=== PATIENT | female | born 1995 | race Hispanic/Latino ===

== ENCOUNTER 2017-08-09 12:24 | Emergency (ER) | payer SELFPAY | END 2017-08-09 14:02 | disposition home or self-care (01) | LOC: ERS 12:24 | DX: H00.015 Hordeolum externum left lower eyelid (principal); R51 Headache | CPT/HCPCS: 99283 ==

== ENCOUNTER 2017-09-16 10:25 | Emergency (ER) | payer SELFPAY ==
[2017-09-16 11:04] LABS: Bilirubin Negative (Negative); Blood, Urine Negative (Negative); Glucose, Urine (Dipstick) Negative (Negative); Ketone, Urine 15 mg/dL (Negative); Nitrite Negative (Negative); Protein, Urine (Dipstick) Trace mg/dL (Neg-Trace); Urobilinogen 0.2 mg/dL (0.2-1.0)
[2017-09-16 11:05] LABS: Bacteria/HPF Rare-Few HPF (None Seen); Hyaline Casts/LPF 0-3 HYALINE CAST LPF (0-3 Hyaline)
--- NOTE | 2017-09-16 12:18 | ULT ---
ULTRASOUND PELVIC ULTRASOUND TRANSVAGINAL DOPPLER DUPLEX: Date: 09/16/17 HISTORY: 22-year-old female with pelvic pain. TECHNIQUE: Transabdominal transducer used to evaluate intrapelvic contents using the urinary bladder as an acous tic window. Endovaginal transducer used to visualize intrapelvic contents in greater detail. Color fl ow Doppler and Pulsed Doppler spectral waveform analysis of ovaries. FINDINGS: Uterus: 9 x 5 x 5.5 cm. There is an intrauterine gestational sac with dimensions of 0.8 x 0.6 x 1.2 cm, estimated to 5 weeks/ 4 days gestational age. It contains a yolk sac, but no embryonic pole. No heart activity. There are two small, moderately hypoechoic, irregularly shaped areas adjacent to the gestational sac which questionably represent subchorionic hemorrhages with thrombosis. No free fluid in the cul-de-sac. Right Ovary: 1.5 x 3 x 1.5 cm. Left Ovary: 2 x 3 x 2.5 cm. No corpus luteal cyst visualized. Blood flow demonstrated in both ovaries by Doppler. IMPRESSION: 1. Evidence for blighted ovum: gestational sac with yolk sac, but no embryo. 2. Two areas of questionable subchorionic hemorrhage. NATALIA Reveles POS: [facility]
== END 2017-09-16 13:26 | disposition home or self-care (01) ==
LOC: ERS 10:25
DX: O20.0 Threatened abortion (principal); O11.3 Pre-existing hypertension with pre-eclampsia, third trimester; Z3A.01 Less than 8 weeks gestation of pregnancy
CPT/HCPCS: 36415; 76856; 81003; 81015; 81025; 84702; 86900; 86901; 87086; 87480; 87491; 87510; 87591; 87660

== ENCOUNTER 2017-09-18 14:34 | Emergency (ER) | payer SELFPAY ==
[2017-09-18 14:57] LABS: #Eosinphils 0.1 thou/uL (0.0-0.7); #Lymphocytes 2.3 thou/uL (1.20-3.40); #Monocytes 0.7 thou/uL (0.11-0.59); #Neutrophils 6.7 thou/uL (1.40-6.50); %Basophils 0.3 % (0.0-1.0); %Eosinophils 1.4 % (0.0-10.0); %Lymphocytes 23.9 % (21.0-51.0); %Monocytes 6.6 % (0.0-10.0); Hematocrit 38.2 % (36.0-47.0); Mean Platelet Volume 7.7 fL (7.4-10.4); White Blood Cell (WBC) Count 9.8 thou/uL (4.8-10.8)
--- NOTE | 2017-09-18 16:58 | ULT ---
PELVIC ULTRASOUND INCLUDING TRANSABDOMINAL AND TRANSVAGINAL AND VASCULAR DUPLEX WITH COLOR AND SPECTR AL DOPPLER IMAGIN09/18/17 HISTORY: Pelvic pain. COMPARISON: 09/16/17. There is again noted to be an intrauterine gestational sac with evidence for a yolk sac but no eviden ce for a pole. There is evidence for retrochorionic hemorrhage again noted. Small left ovarian possibly corpus luteum cyst. The gestational sac actually appears to be somewhat larger than on the p rior study which by measurements would indicate approximately 6 weeks, 0 days gestation. Findings cer tainly favor that of possible blighted ovum. Given the gestational sac size and the fact that there i s no pole or cardiac activity. IMPRESSION: Somewhat enlarging gestational sac with a yolk sac but no evidence for a pole or cardiac activity. Small left ovarian corpus luteum cyst. Findings favor that of blighted ovum. Correlation wi th serum HCGs is suggested. There is evidence for subchorionic hemorrhage. POS: [facility]
== END 2017-09-18 17:30 | disposition home or self-care (01) ==
LOC: ERS 14:34
DX: O20.0 Threatened abortion (principal); O16.1 Unspecified maternal hypertension, first trimester; Z3A.01 Less than 8 weeks gestation of pregnancy
CPT/HCPCS: 36415; 76856; 84702; 85025

== ENCOUNTER 2017-10-06 20:06 | Emergency (ER) | payer SELFPAY ==
[2017-10-06 21:11] LABS: BHCG - Serum POSITIVE (NEGATIVE); Pregs Control Background? CLEAR/WHITE (CLR/WHITE); Pregs Control Bar Appear? YES (CONTROL BAR)
== END 2017-10-06 21:30 | disposition home or self-care (01) ==
LOC: ERS 20:06
DX: O02.0 Blighted ovum and nonhydatidiform mole (principal); I10 Essential (primary) hypertension
CPT/HCPCS: 36415; 84702; 84703; 99284

== ENCOUNTER 2018-02-24 17:07 | Day surgery (SDC) | payer SELFPAY ==
[2018-02-24 18:25] VITALS: BMI 24.7
--- NOTE | 2018-02-24 19:04 | PDOC.LDHP ---
Labor and Delivery H&P Chief complaint: other (fever, nausea/vomiting) HPI: Serene Bauer is a 22 year old F at 28.3 wks who presents to the L&D with complains of fever and nausea and vomiting. States that these symptoms started yesterday and have worsened today. She is unable to keep PO down. She states that he fever is as high as 101.3. She denies any contractions, LOF, vaginal bleeding, discharge. +FM. Her has been otherwise uneventful. Current gestational age (weeks): 28 (28.3) Due date: 05/16/18 Grav: 4 Para: 3 (3003) OB History Details: hx of pre-eclampsia in first , no issues with next 2 pregnancies Current complications: none Abnormal US findings: No Current medications: pre-geremias vitamins Social history: none - Physical Exam Vital signs reviewed and normal: yes General: NAD, resting Heart: RRR Lungs: CTAB Abdomen: gravid Extremeties: no edema FHT: category 1 (140 baseline, mod addis, accels present, no decels) [place] contractions every: none - OB Labs Blood type: unknown RH: unknown Antibody Screen: unknown HIV: unknown RPR: unknown HEPSAg: unknown 1 hour GCT: unknown GBS: unknown Additional Labs: unable to obtain labs due to after hours - Assessment (1) sIUP (2) Fever (3) N/v (4) Hx of pre-eclampsia - Plan Plan: observation in L&D -: Serene Bauer is a 22 year old F at 28.3 weeks with fever, n/v. (1) sIUP: - no contractions, LOF, vaginal bleeding. +FM - checking BPP and OB limited US - FHTs cat I (2) Fever: unknown etiology at this time - checking CBC, CMP, UA, lactic acid - denies pain, no CVAT, normal abd exam (3) N/V: - prn nausea meds - tylenol for headache <Raghu Rollins - Last Filed: 02/24/18 20:23> <Pam Regalado - Last Filed: 02/24/18 21:19> Allergies/Adverse Reactions: Allergies Allergy/AdvReac Type Severity Reaction Status Date / Time No Known Allergies Allergy Verified 11/27/16 11:54 Attending Addendum - Attending Addendum Date/Time: 02/24/182113 I personally evaluated the patient and discussed the management with Dr. Rollins I agree with the History, Examination, Assessment and Plan documented above with any addition or exceptions noted below. 22 yo female at 28.3 wks present for evaluation of persistent N/V and fever at home today. Unable to review records, but has consistent care with [facility]. Over the past few days patient complains of N/V with fever of 101 at home x1. No significant sick contacts. Denies colds, chills, body aches, rashes , diarrhea, discharge, dysuria, etc. Exam benign for significant findings as well. Uterus nontender to palpation. No CVA tenderness bilaterally. NST reactive. Will monitor in triage for present. Based on workup, symptoms, fetus, and patient will determine if need for obs or ok to d/c to home. Will rule out sources of infection. BPP and biometry ordered. Trend exam. Continue to monitor fetus throughout. No contractions noted on toco or per patient. Treat symptoms. Start IVFs. Ileana <Pam Regalado - Last Filed: 02/24/18 21:19>
[2018-02-24 19:08] VITALS: BP 111/55; TEMP 100
[2018-02-24 19:09] LABS: #Eosinphils 0.2 thou/uL (0.0-0.7); #Lymphocytes 1.2 thou/uL (1.20-3.40); #Monocytes 0.8 thou/uL (0.11-0.59); #Neutrophils 9.9 thou/uL (1.40-6.50); %Basophils 0.1 % (0.0-1.0); %Eosinophils 1.9 % (0.0-10.0); %Lymphocytes 10.1 % (21.0-51.0); %Monocytes 6.4 % (0.0-10.0); %Neutrophils 81.5 % (42.0-75.0); Hemoglobin 9.3 g/dL (12.0-16.0); Mean Corpuscular HGB CONC 33.3 g/dL (32.0-36.0); Mean Corpuscular Hemoglobin 25.4 pg (27.0-31.0); Mean Corpuscular Volume 76.2 fl (81.0-99.0); Mean Platelet Volume 8.3 fL (7.4-10.4); Platelet Count 219 thou/uL (130-400); RBC Distribution Width 12.9 % (11.5-14.5); Red Blood Cell (RBC) Count 3.64 mill/uL (4.20-5.40); White Blood Cell (WBC) Count 12.1 thou/uL (4.8-10.8)
[2018-02-24 19:47] LABS: ALT (SGPT) 8 U/L (8-55); AST (SGOT) 16 U/L (5-34); Albumin 3.7 g/dL (3.5-5.0); Alkaline Phosphatase 118 U/L (40-150); Anion Gap 11 mmol/L (10-20); BUN (Urea Nitrogen) 5 mg/dL (7.0-18.7); Bilirubin, Total 0.3 mg/dL (0.2-1.2); Calc. Creatinine Clearance 156 mL/min (70-130); Calcium 8.7 mg/dL (7.8-10.44); Carbon Dioxide 22 mmol/L (22-29); Chloride 109 mmol/L (98-107); Estimated GFR-MDRD Greater than 90; Glucose 103 mg/dL (70-105); Potassium 3.6 mmol/L (3.5-5.1); Protein, Total 6.7 g/dL (6.0-8.3); Sodium 138 mmol/L (136-145)
[2018-02-24 19:54] LABS: Lactic Acid 1.3 mmol/L (0.5-2.2)
[2018-02-24] MEDS ORDERED: Acetaminophen 325 MG TAB PO PRN (20:00)
[2018-02-24] MEDS ORDERED: Ondansetron ODT 4 MG TAB PO PRN (20:01)
[2018-02-24 21:09] LABS: Bilirubin Negative (Negative); Blood, Urine Negative (Negative); Clarity CLEAR (Clear); Glucose, Urine (Dipstick) Negative (Negative); Leukocyte Trace (Negative); Nitrite Negative (Negative); Protein, Urine (Dipstick) Negative (Neg-Trace); Specific Gravity, Urine 1.003 (1.002-1.036); Urobilinogen 0.2 mg/dL (0.2-1.0)
[2018-02-24 21:11] LABS: Bacteria/HPF 1+ HPF (None Seen); Hyaline Casts/LPF 0-3 HYALINE CAST LPF (0-3 Hyaline); RBC/HPF 0-3 HPF (0-3); Squamous Epithelial 0-3 HPF (0-3); WBC/HPF 0-3 HPF (0-3)
--- NOTE | 2018-02-24 21:46 | ULT ---
BIOPHYSICAL PROFILE 02/24/18 COMPARISON: None. HISTORY: female with fever, nausea, and vomiting. TECHNIQUE: Multiplanar alford scale and color doppler images were obtained in a transabdominal ultrasound fo r a biophysical profile. FINDINGS: There is a single live intrauterine with heart rate of 160 beats per minute. CARMEN is 15.9 cm , which is normal. The fetus scored 8 of 8 on the biophysical profile which is normal. IMPRESSION: Normal biophysical profile. POS: [facility]
--- NOTE | 2018-02-24 22:01 | ULT ---
OB ULTRASOUND: 02/24/18 COMPARISON: None. HISTORY: female with fever, nausea, and vomiting. TECHNIQUE: Multiplanar alford scale and color doppler images were obtained in a transabdominal ultrasound. FINDINGS: There is a single live intrauterine with heart rate of 160 beats per minute. Estimated feta l weight is 1267 grams. Average age of the fetus based off today's examination is 28 weeks, 3 days. T he following measurements were taken and dates based off these measurements are as follows: BPD 6.95 cm 28 weeks, 0 days HC 26.39 cm 28 weeks, 5 days AC 24.69 cm 28 weeks, 6 days FL 5.37 cm 28 weeks, 3 days The placenta is anterior in location without focal abnormality. CARMEN is 15.9 cm, which is normal. Ther e is no evidence of placenta previa. IMPRESSION: Single live intrauterine with estimated age of 28 weeks, 3 days. POS: [facility]
== END 2018-02-24 23:05 | disposition home or self-care (01) ==
LOC: L&D/OP 17:07
PROVIDERS: ATTEND Student in an Organized Health Care Education/Training Program
DX: O99.89 Other specified diseases and conditions complicating pregnancy, childbirth and the puerperium (principal); R50.9 Fever, unspecified; R11.2 Nausea with vomiting, unspecified; Z3A.28 28 weeks gestation of pregnancy
CPT/HCPCS: 36415; 76816; 76819; 80053; 81001; 83605; 85025; 96360; 96361; 99283

== ENCOUNTER 2018-03-15 09:37 | Day surgery (SDC) | payer OTHER ==
[2018-03-15 10:02] VITALS: TEMP 98.4; BMI 24.5
[2018-03-15] MEDS ORDERED: Iron Sucrose Complex 500 MG in Sodium Chloride 0.9% 250 ML 250 ML IVPB SCH (10:30)
[2018-03-15] MEDS ORDERED: Acetaminophen 500 MG TAB PO SCH (10:30)
[2018-03-15] MEDS ORDERED: diphenhydrAMINE 50 MG/ML VIAL IVP PRN (11:12)
--- NOTE | 2018-03-15 11:15 | PDOC.EVN ---
Event Note - Event Note Event Note: Pt is a 22yo at 31.3wk with EDC 05/16/18 here for iron infusion due to persistent anemia despite po iron intake. She is feeling well today and has no concerns. Denies ctx, dec FM, VB, LOF. PE- wnl, gravid abd. no distress. VSS FHT- 140, mod addis, + acel, - decel -- Cat I strip Continue IV iron sucrose per protocol and monitor. If feeling well after infusion, d/c home with outpt OB follow up at [facility].
[2018-03-15] MEDS ORDERED: Sodium Chloride 0.9% 1,000 ML IV SCH (16:30)
--- NOTE | 2018-03-15 16:37 | PDOC.EVN ---
Event Note - Event Note Event Note: called to bedside after infusion complete and pt c/o feeling "weird." She endorses swelling and a rash as well as feeling numbness in her legs and overall dizziness. VSS- BP 110s/60-70s, pulse wnl FHT- cat I PE- Gen- well appearing, NAD HEENT- wnl, no oropharyngeal skin- no visible or palpable rash Lungs- CTAB, no resp distress CV- RRR LE- trace LE edema, nonpitting pt is s/p 25mg IV benadryl A&P- Likely drug reaction from iron sucrose vs. anxiety vs. combination- no signs of anaphylaxis, allergic rxn. will give IVF bolus, monitor and likely d/c home after feeling better. <Rolanda Figueroa - Last Filed: 03/15/18 16:29> Attending Addendum - Attending Addendum Date/Time: 03/16/18 6655 I personally evaluated the patient and discussed the management with Dr. Figueora I agree with the History, Examination, Assessment and Plan documented above with any addition or exceptions noted below. Agree with plan. Patient actual with improvement in H&H from last weeks clinic labs. Will monitor. ABrayMD <Pma Regalado - Last Filed: 03/16/18 11:50>
[2018-03-15 16:38] LABS: #Eosinphils 0.2 thou/uL (0.0-0.7); #Lymphocytes 1.7 thou/uL (1.20-3.40); #Monocytes 0.5 thou/uL (0.11-0.59); #Neutrophils 6.5 thou/uL (1.40-6.50); %Basophils 0.1 % (0.0-1.0); %Eosinophils 2.7 % (0.0-10.0); %Lymphocytes 19.4 % (21.0-51.0); %Monocytes 5.4 % (0.0-10.0); %Neutrophils 72.3 % (42.0-75.0); Hemoglobin 9.1 g/dL (12.0-16.0); Mean Corpuscular HGB CONC 32.3 g/dL (32.0-36.0); Mean Corpuscular Hemoglobin 23.8 pg (27.0-31.0); Mean Corpuscular Volume 73.9 fl (81.0-99.0); Mean Platelet Volume 8.5 fL (7.4-10.4); Platelet Count 238 thou/uL (130-400); RBC Distribution Width 14.2 % (11.5-14.5); Red Blood Cell (RBC) Count 3.83 mill/uL (4.20-5.40)
[2018-03-15 17:10] LABS: Hypochromia SLIGHT = 6-15 cells (100X) (0-5/hpf); MDiff Complete? YES; Microcytosis SLIGHT = 6-15 cells (100X) (0-5/hpf); Ovalocytes SLIGHT = 2-5 cells (100X) (0-1/hpf); PLT Morphology Comment Appears Adequate; Polychromasia SLIGHT = 2-3 cells (100X) (0-2/hpf)
--- NOTE | 2018-03-15 18:20 | PDOC.EVN ---
Event Note - Event Note Event Note: Patient feeling much better. No longer having any rash or allergy symptoms. She feels well and is ready to go home. Will d/c home with f/u in [facility] at next scheduled visit.
== END 2018-03-15 18:35 | disposition home or self-care (01) ==
LOC: L&D/OP 09:37
PROVIDERS: ATTEND Student in an Organized Health Care Education/Training Program
DX: O99.013 Anemia complicating pregnancy, third trimester (principal); Z3A.31 31 weeks gestation of pregnancy
CPT/HCPCS: 85025; 96361; 96365; 96366; 96375; 99283; J1200; J1756; J7050

== ENCOUNTER 2018-04-22 10:55 | Observation (INO) | payer OTHER ==
[2018-04-22 11:29] VITALS: BMI 26.4
[2018-04-22 12:11] LABS: Amnisure Internal Control QC ACCEPTABLE (ACCEPTABLE); Amnisure Test No Membranes Rupture (No Rupture)
--- NOTE | 2018-04-22 12:58 | PDOC.FPROB ---
Addendum entered and electronically signed by Em Jasso MD 04/22/18 15:57 : PMH: Gestational hypertension during 1st Original Note: FMR OB H&P: HPI - History of Present Illness Chief Complaint: loss of fluid, contractions Indentification: History of Present Illness: 22 yo who came in with chief complaint of reported loss of fluid and contractions. Around 1300 yesterday she stated she had a small leakage of clear fluid, teaspoon amount. Denies seeing blood. Subsequently she had several more episodes of vaginal clear fluid loss, but denies any large amounts of fluid loss. Endorses increased vaginal pressure and movement. Contractions started yesterday morning and she feels them every 15 minutes, but not regularly. Primary Care Physician: Dr. Regalado FMR OB H&P: Current - Care : 4 Para: 3 Gestational age: 36.4 Due date: 05/16/18 Dating Criteria: 16.3wk US Course/Complications: 1. 1st trimester bleeding and use of Plan B in early : Referred for MFM anatomy ultrasound - OB Labs Blood type: B RH: positive Antibody Screen: negative HIV: negative RPR: negative HepBsAg: negative Rubella: immune Quad screen: negative Gonorrhea: negative Chlamydia: negative Pap Smear: NILM (2016) 1 hour gtt: 84 GBS: negative H&H: 8.7 Platelets: 303 - Anatomy Survey Anatomy survey: 01/03/18 Indication: 1st trimester bleeding Results: Structurally intact, appropriately growing female fetus with no gross structural abnormalities noted at 21 weeks of gestation. Spine and anteiror abd wall are intact. 3 vessel umbilical cord. Placenta is well implanted. Baby is in transverse lie. FMR OB H&P: History - Past Medical History PMH: 1. Iron deficiency anemia s/p iron infusion on 04/20 2. Gestational hypertension 3. Possible varicella susceptibility ( no prior history) - OB History OB History: 1. 08/17/12, VD, F 37 wks 2. 06/17/14, VD, F, 39 wks 3. 3, VD, M, 38 wks - TEAROOM HOSTESS History TEAROOM HOSTESS History: 1. Pap 2016: NILM - Social History Social History: Denies x3: tobacco, etoh, drugs - Family History Family History: DM HTN FMR OB H&P: Medications - Current Home Medications: Medication Instructions Recorded Confirmed Type Vitamin 1 tab PO DAILY tab 11/29/16 03/15/18 Rx Ferrous Sulfate 325 mg PO DAILY #30 tablet 02/24/18 04/22/18 Rx Allergies/Adverse Reactions: Allergies Allergy/AdvReac Type Severity Reaction Status Date / Time No Known Allergies Allergy Verified 04/22/18 11:27 FMR OB H&P: ROS - Review of Systems General: denies: fever/chills, recent trauma Eyes: denies: eye pain, vision changes ENT: denies: nasal congestion, rhinorrhea, sore throat Cardiovascular: reports: edema. denies: chest pain Respiratory: denies: congestion, shortness of breath Gastrointestinal: denies: abdominal pain, nausea, vomiting Genitourinary (Female): reports: contractions. denies: dysuria, vaginal bleeding Musculoskeletal: denies: tenderness, redness, swelling Neurologic: denies: numbness, syncope Integumentary: denies: itching, lesions Breast: denies: skin changes, pain/tenderness Endocrine: denies: cold intolerance, polydipsia Psychological: denies: depression, anxiety FMR OB H&P: Vital Signs - Maternal Vital signs: BP 104/56, HR 81, RR 16, T 98.5 - Heart Tones Baseline: 125 Variability: moderate Acceleration: present Deceleration: absent Category: category 1 FMR OB H&P: Physical Exam - Physical Exam General: NAD, awake, alert and oriented HEENT: normocephalic and atraumatic, EOMI, MMM, conjunctiva clear, no scleral icterus Neck: supple, no LAD Chest: non-tender to palpation, no lesions Heart: RRR, no murmurs/rubs/gallops General: CTAB, no respiratory distress, good air movement Abdomen: soft, gravid Musculoskeletal: normal gait and station, pulses present Skin: no rash, good tugor Lymphatic: no unusual bruising or bleeding, no purpura Psychiatric: intact recent and remote memory, good judgement and insight, normal mood and affect - Pelvic Exam Vulva: normal hair distribution, no masses, no lesions, no blood, normal rugae SVE: 4/50/-2 Hernandez score: 7 FMR OB H&P: Results - Labs Lab results: Laboratory Results - last 24 hr 04/22/18 11:50 Amnio Swab Test No Membranes Rupture FMR OB H&P: A/P - Problem List (1) Intrauterine Current Visit: Yes Status: Acute Code(s): Z34.90 - ENCNTR FOR SUPRVSN OF NORMAL , UNSP, UNSP TRIMESTER Discussion: Date/Time: 04/22/18 1251 22 yo at 36.4 wks with reported loss of fluid and contractions 1. Suspected PPROM -BPP was reassuring with an CARMEN of 9 -Amnisure negative x2 -Ferning (-) -Speculum exam showed small pooling of clear liquid below cervicx approx 1cc, but also mixed with white discharge-possible vaginitis -FHT: 120/mod/+accels/-decels -SVE: 4/50/-2 (4cm dilated at [facility] last week) -Plan for steroid administration for lung maturity due to likelihood of delivering within the week -Plan: Though tests have been negative, there is still a concern for ROM based on strong history. We will continue external monitoring, cervical recheck in 2 hours 2. sIUP -no concerns at this time 3. Iron deficiency anemia -s/p iron transfusion on 04/20 -continue home iron -H/H ordered -patient currently asx: denies MORENO, SOB 4. Hx of gestational hypertension vs preE (during 1st ) -Will monitor blood pressures closely 5. Hx of 1st trimester bleeding & use of plan B in early -Resolved, denies vaginal bleeding -Anatomy scan showed no abnormalities This H&P was discussed with Drs. Merino, Jorge, and Brennon who agree with the above documentation and plan. Attending Addendum - Attending Addendum Date/Time: 04/22/18 1636 I personally evaluated the patient and discussed the management with Dr. Jasso. At this point PPROM seems unlikely (CARMEN 9, neg amnisure, neg ferning). Suspect early PTL more likely. Plan as above, steroids and GBS prophy,
[2018-04-22 13:22] LABS: Amnisure Test No Membranes Rupture (No Rupture)
[2018-04-22 13:23] LABS: Amnisure Internal Control QC ACCEPTABLE (ACCEPTABLE)
[2018-04-22] MEDS ORDERED: Acetaminophen 500 MG TAB PO PRN (14:36)
[2018-04-22] MEDS ORDERED: Promethazine HCl 25 MG/ML VIAL IM PRN (14:36)
[2018-04-22] MEDS ORDERED: Ondansetron HCl/PF 4 MG/2 ML Vial IVP PRN (14:36)
--- NOTE | 2018-04-22 14:55 | PDOC.LDPN ---
Labor & Delivery Progress Note - Subjective Subjective: comfortable (130/mod/+accels, no decels), vaginal pressure - Objective Vital signs reviewed and normal: yes General: NAD Uterine fundus: non tender Dilation: 5 Effacement: 50% Station: -2 FHT: category 1 [place] contractions every: 5min - Assessment (1) Intrauterine Code(s): Z34.90 - ENCNTR FOR SUPRVSN OF NORMAL , UNSP, UNSP TRIMESTER Current Visit: Yes Status: Acute Plan: continue plan of care -: 22 yo at 36.4 wks with reported loss of fluid and contractions 1. Suspected PPROM; cervical change -BPP was reassuring with an CARMEN of 9 -Amnisure negative x2 -Ferning (-) -Speculum exam showed small pooling of clear liquid below cervicx approx 1cc, but also mixed with white discharge-possible vaginitis -FHT: 120/mod/+accels/-decels -SVE: 5/50/-2 -Due to progression of cervical changes, plan to admit to observation with repeat cervical check in 2 hours. Plan to give betamethasone x2 for lung maturity in antipication of early labor. 2. sIUP 3. Iron deficiency anemia -s/p iron transfusion on 04/20 -H/H 11.5/34.6, stable, asx -will resume home iron 4. Hx of gestational hypertension vs preE 5. Hx of 1st trimester bleeding & use of plan B in early This H&P was discussed with Jorge Mancia, and Brennon who agree with the above documentation and plan. <Em Jasso - Last Filed: 04/22/18 15:53> Attending Addendum - Attending Addendum Date/Time: 04/22/18 7699 I personally evaluated the patient and discussed the management with Dr. Jasso. I agree with the History, Examination, Assessment and Plan documented above with any addition or exceptions noted below. Given Amnisure negative, negative ferning and CARMEN of 9cm, ROM seems less likely. She did have clue cells noted on microscopic examination. She does have a HX of 37 week delivery. She has shown interval cervical change in the past few hours. I am comfortable with continued observation. Will elect to give steroids out of an abundance of caution. If GBS status not ascertained (done 2 days ago, not resulted) recommend GBS prophylaxis. Plan discussed with residents and patient. <Gregorio Mreino - Last Filed: 04/22/18 16:34>
--- NOTE | 2018-04-22 15:01 | ULT ---
ULTRASOUND BIOPHYSICAL PROFILE: DATE: 04-22-18 HISTORY: 22-year-old female with pre term labor. FINDINGS: breathin tone: 2 movement: 2 Amniotic fluid volume: 2 IMPRESSION: Normal biophysical profile score of 8/8, excluding the non-stress test. melani POS: [facility]
[2018-04-22 15:07] LABS: Hemoglobin 11.5 g/dL (12.0-16.0); Mean Corpuscular HGB CONC 33.1 g/dL (32.0-36.0); Mean Corpuscular Hemoglobin 25.1 pg (27.0-31.0); Mean Corpuscular Volume 75.6 fL (78.0-98.0); Platelet Count 231 thou/uL (130-400); RBC Distribution Width 18.9 % (11.5-14.5); Red Blood Cell (RBC) Count 4.57 mill/uL (4.20-5.40); White Blood Cell (WBC) Count 9.6 thou/uL (4.8-10.8)
[2018-04-22] MEDS: Betamet Acet/Betamet Na Ph 30 MG/5 ML VIAL IM SCH (15:20)
[2018-04-22 15:59] LABS: HBSAg Index 0.22 S/CO (0-0.99); Hep B Surf Ag Non-Reactive S/CO (NonReactive); Syphilis Antibody Nonreactive (Nonreactive); Syphilis Antibody Index 0.03 S/CO (<1.00 Non-Reactive)
--- NOTE | 2018-04-22 16:47 | PDOC.LDPN ---
Labor & Delivery Progress Note - Subjective Subjective: comfortable, no concerns - Objective General: NAD, resting Uterine fundus: non tender Dilation: 5 Effacement: 50% Station: -2 FHT: category 1 (130/mod/+accels) [place] contractions every: uterine irritability - Assessment (1) Intrauterine Code(s): Z34.90 - ENCNTR FOR SUPRVSN OF NORMAL , UNSP, UNSP TRIMESTER Current Visit: Yes Status: Acute -: 22 yo at 36.4 wks with reported loss of fluid and contractions 1. latent labor -SVE: /-2 @ 1620, unchanged from last exam -Betamethasone x1 given this afternoon; give next one tomorrow at 24 hours -Plan: Continue to monitor with cervical rechecks as needed 2. sIUP 3. Iron deficiency anemia -s/p iron transfusion on 04/20 -H/H 11.5/34.6, stable, asx -will resume home iron 4. Hx of gestational hypertension vs preE 5. Hx of 1st trimester bleeding & use of plan B in early This H&P was discussed with Jorge Mancia, and Brennon who agree with the above documentation and plan. <Em Jasso - Last Filed: 04/22/18 17:42> - Assessment (1) Intrauterine Code(s): Z34.90 - ENCNTR FOR SUPRVSN OF NORMAL , UNSP, UNSP TRIMESTER Current Visit: Yes Status: Acute <Gregorio Merino - Last Filed: 04/23/18 13:44> Attending Addendum - Attending Addendum Date/Time: 04/23/18 1232 I personally evaluated the patient and discussed the management with Dr. Jasso. I agree with the History, Examination, Assessment and Plan documented above with any addition or exceptions noted below. I think that PPROM/PTL is unlikely given lack of objective evidence (amnisure/ vikki/ferning) however, given that the patient lives remote from the hospital with social chaos and unreliable transportation, and given Hx 37 wk delivery I would favor obervation and steroids as well as close F/U with Dr. Regalado. <Gregorio Merino - Last Filed: 04/23/18 13:44>
[2018-04-22 19:20] LABS: Amphetamine Not Detected (NotDetected); Barbiturates Screen Not Detected (NotDetected); Benzodiazepine Screen Not Detected (NotDetected); Cocaine Metabolite Screen Not Detected (NotDetected); Medtox Control Line Valid? VALID (VALID); Medtox Reader # READER 1; Methadone Not Detected (NotDetected); Methamphetamine Not Detected (NotDetected); Opiate Screen Not Detected (NotDetected); Oxycodone Screen Not Detected (NotDetected); Phencyclidine (PCP) Not Detected (NotDetected); THC/Cannabinoid Screen Not Detected (NotDetected); Tricyclic Screen Not Detected (NotDetected)
[2018-04-22] MEDS: Lactated Ringer's 1,000 ML IV SCH (19:30)
[2018-04-22] MEDS ORDERED: Zolpidem Tartrate 5 MG TAB PO PRN (20:54)
[2018-04-23] MEDS: Lactated Ringer's 1,000 ML IV SCH (00:05)
--- NOTE | 2018-04-23 11:51 | PDOC.LDPN ---
Labor & Delivery Progress Note - Subjective Subjective: comfortable, vaginal pressure - Objective Vital signs reviewed and normal: yes General: NAD, resting Uterine fundus: non tender FHT: category 1 (135/mod/+accels, no decels) [place] contractions every: uterine irritability - Assessment (1) Intrauterine Code(s): Z34.90 - ENCNTR FOR SUPRVSN OF NORMAL , UNSP, UNSP TRIMESTER Current Visit: Yes Status: Acute -: 1. Possible PROM, , sIUP -Unlikely PPROM after negative amnisure x2, negative ferning -Received steroids x1 yesterday, will receive second dose today around 3 pm -Will hold off on cervical checks unless clinically indicated -Plan: Due to unlikelihood of PROM, will discharge patient to home with labor precautions after receiving second dose of steroids 2. Hx of iron def. anemia -Continue home meds upon discharge This plan was discussed with Dr. Merino and Dr. Abernathy who agree with the above documentation. <Em Jasso - Last Filed: 04/23/18 11:57> - Assessment (1) Intrauterine Code(s): Z34.90 - ENCNTR FOR SUPRVSN OF NORMAL , UNSP, UNSP TRIMESTER Current Visit: Yes Status: Acute <Gregorio Merino - Last Filed: 04/23/18 14:18> Attending Addendum - Attending Addendum Date/Time: 04/23/18 0077 I personally evaluated the patient and discussed the management with Fritz Jasso and Josemanuel. Patient is at 36 5/7 today. She has received steroids given nature of presentation yesterday and Hx of 37 week delivery. She is neither ruptured nor in labor. She is, however, miserable. She will followup with Dr. Regalado and madelin osborne for early IOL, which may be reasonable given her symptoms, distance from the hospital ([place]) and poor transportation. <Gregorio Merino - Last Filed: 04/23/18 14:18>
[2018-04-23] MEDS: Betamet Acet/Betamet Na Ph 30 MG/5 ML VIAL IM SCH (15:10)
[2018-04-23 15:29] VITALS: BP 106/58; TEMP 98.2
--- NOTE | 2018-04-24 07:39 | DIS-2 ---
DATE OF ADMISSION: 04/22/2018 DATE OF DISCHARGE: 04/23/2018 RESIDENT: Em Jasso M.D. ADMITTING ATTENDING: Dr. Gregorio Merino. DISCHARGE ATTENDING: Dr. Gregorio Merino. CONSULTATIONS: None. PROCEDURES: None. PRIMARY DIAGNOSIS: Latent labor, labor s/p IM betamethasone x2 SECONDARY DIAGNOSIS: Premature rupture of membranes, ruled out. DISCHARGE MEDICATIONS: 1. vitamins 1 tab p.o. daily. 2. Ferrous sulfate 325 mg p.o. daily. HISTORY OF PRESENT ILLNESS AND HOSPITAL COURSE: Serene is a at 36 and 4 weeks by 13.2 week ultrasound with an BRITTANY of 05/16/2018, who presented to L&D with reported loss of fluid and increased contractions. She endorsed continuous vaginal leakage of clear fluid in teaspoon amounts for the past several hours. Denies blood or abnormal discharge. [facility] at the [facility] she was 4 cm dilated. At L&D, she was initially 4cm and later progressed to 5 cm. PPROM workup was negative with negative amnisure (x2) and ferning test. Speculum exam showed minimal pooling. VP3 was negative. She was admitted for observation due to cervical change. FHT showed that baby was doing well with urterine irritability and lack of consistent contractions. IM Betamethasone x2 was given in anticipation of possible labor. Due to lack of cervical change and absence of regular contractions overnight patient was discharged home with labor precautions and told to return if she was experiencing any of the warning signs of early signs of labor, loss of fluid , increased contractions, not feeling baby moving, etc. DISPOSITION: Stable. DISCHARGE INSTRUCTIONS: 1. Location: Home. 2. Diet: Regular diet. 3. Activity: As tolerated. 4. Follow up. Please return to L&D if showing any signs discussed above and keep all current appointment visits with physician. Examined by me and discussed with Dr Jasso, agree with above. MTDD
== END 2018-04-23 15:40 | disposition home health service (06) ==
LOC: L&D/OP 10:55 → L&D 15:04 → INTOOBSV 15:04
PROVIDERS: ADMIT Student in an Organized Health Care Education/Training Program; ATTEND Student in an Organized Health Care Education/Training Program
DX: O60.03 Preterm labor without delivery, third trimester (principal); O99.013 Anemia complicating pregnancy, third trimester; D50.9 Iron deficiency anemia, unspecified; Z79.899 Other long term (current) drug therapy; Z3A.36 36 weeks gestation of pregnancy
CPT/HCPCS: 36415; 59025; 76819; 80306; 84112; 85027; 86780; 86850; 86900; 86901; 87340; 87480; 87510; 87660; 96360; 96361; 96372; 99285; G0378; J0702

== ENCOUNTER → 2018-04-25 | Day surgery (SDC) | payer OTHER ==
[~2018-04-25] MED LIST: Acetaminophen 500 MG TAB PO SCH; hydrOXYzine 25 MG TAB PO SCH
[2018-04-25 10:10] VITALS: BMI 26.4
[2018-04-25 10:14] VITALS: BP 110/68; TEMP 97.9
--- NOTE | 2018-04-25 11:18 | PDOC.FPROB ---
Addendum entered and electronically signed by Rolanda Pena MD 04/25/18 12:13 : 22 yr old at 37 wks by LMP/16.3 wk tata who presents for intermittent back pain for approx 18 hours. No urinary symptoms. Some TTP on bilateral CVA regions/low lumbar paraspinals. +FM, no abdominal contractions. no LOF, no Vag DC. Of note, 2 days prior she completed betamethasone x 2 doses for suspected labor- patient had cervical change from 4 to 5 cm with inconsistent ctxs in labor and delivery. SVE: /-2, no apparent contractions on toco. Pending UA. Agree with other histories as noted below by applications intern. cont to monitor and will recheck for possible labor progression in 2 hours. Original Note: FMR OB H&P: HPI - History of Present Illness Chief Complaint: back pain History of Present Illness: Patient is a 22YO @ 37 weeks today consistent with 16.3 week songato presents with a CC of lower back pain that has been ongoing since ~18-19:00 last night. Patient states that she initially began to have upper abdominal pain around 6PM last night that eventually radiated around her sides all across her lower back. She then took some tylenol which alleviated the abdominal pain but did not help with her back pain. Last does was 1g at ~2-3:00 today. She describes the pain as constant and sharp and currently rates is at a 8/10 in severity. Other than tylenol she also reports trying to lay down and reposition and drink water to relieve the pain but nothing has helped. Does endorse having some Brule-rojas contractions every ~15-20 minutes but denies any leakage of fluid, vaginal bleeding, dysuria or frequency. She also reports having a low grade fever around 99F last night but denies any N/V/D. Primary Care Physician: Dr. Pam Regalado FMR OB H&P: Current - Care : 4 Para: 3003 Gestational age: 37 weeks Dating Criteria: 16.3 week sono - OB Labs Blood type: B RH: positive Antibody Screen: negative HIV: negative RPR: negative HepBsAg: negative Rubella: immune Quad screen: negative Urine drug screen: negative Gonorrhea: negative Chlamydia: negative Pap Smear: NILM (2016) 1 hour gtt: 84 GBS: negative FMR OB H&P: History - Past Medical History PMH: 1. [place] s/p iron infusion on 04/20 2. Gestational HTN 3. Possible varicella susceptibility (no prior history) - OB History OB History: 1. 08/17/12, VD, F 37 wks 2. 06/17/14, VD, F, 39 wks 3. 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 Pap 2016- NILM - Social History Social History: Denies tobacco, EtOH, or drug abuse. - Family History Family History: DM & HTN FMR OB H&P: Medications - Current Home Medications: Medication Instructions Recorded Confirmed Type Ferrous Sulfate 325 mg PO BID 04/25/18 04/25/18 History Vitamin 1 tab PO BID 04/25/18 04/25/18 History hydrOXYzine [Atarax] 25 mg PO BID PRN #30 tab 04/25/18 Rx Allergies/Adverse Reactions: Allergies Allergy/AdvReac Type Severity Reaction Status Date / Time No Known Allergies Allergy Verified 04/22/18 11:27 FMR OB H&P: ROS - Review of Systems General: reports: fever/chills. denies: weight/appetite/sleep changes Eyes: denies: vision changes Cardiovascular: denies: chest pain, palpitation Respiratory: denies: cough, shortness of breath Gastrointestinal: reports: abdominal pain. denies: nausea, vomiting, diarrhea Genitourinary (Female): reports: contractions. denies: dysuria, hematuria, vaginal discharge, vaginal pain, vaginal bleeding Musculoskeletal: reports: pain Neurologic: denies: headache Breast: reports: pain/tenderness FMR OB H&P: Vital Signs - Maternal Vital signs: Vital Signs - First Documented Temp Pulse Resp BP 97.9 F 72 20 110/68 04/25/18 10:06 04/25/18 10:06 04/25/18 10:06 04/25/18 10:06 - Heart Tones Baseline: 140 Variability: moderate Acceleration: present Deceleration: absent Category: category 1 Terminous contractions every: no contraction clearly identified on TOCO FMR OB H&P: Physical Exam - Physical Exam General: NAD, awake, alert and oriented HEENT: normocephalic and atraumatic, conjunctiva clear, grossly normal vision, grossly normal hearing Heart: RRR, normal S1/S2 General: CTAB, no respiratory distress, good air movement Abdomen: gravid, non-tender, bowel sound present Musculoskeletal: normal gait and station, FROM in all four extremities, other Deviation from normal: Pain across B/L lower back with CVA tenderness. - Pelvic Exam Vulva: normal hair distribution, no blood Deviation from normal: Normal vaginal discharge SVE: 5/50/-2 Hernandez score: 8 Membranes: intact FMR OB H&P: A/P - Problem List (1) Intrauterine Current Visit: Yes Status: Acute Code(s): Z34.90 - ENCNTR FOR SUPRVSN OF NORMAL , UNSP, UNSP TRIMESTER (2) Anemia affecting Current Visit: Yes Status: Acute Code(s): O99.019 - ANEMIA COMPLICATING , UNSPECIFIED TRIMESTER Qualifiers: Trimester: third trimester Qualified Code(s): O99.013 - Anemia complicating , third trimester Comment: Continue iron supplementation and stool softner. (3) Low back pain Current Visit: Yes Status: Acute Code(s): M54.5 - LOW BACK PAIN Qualifiers: Chronicity: acute Back pain laterality: bilateral Disposition: 22 yo at 37 wks consistent w/ 16.3 week sono with reported lower back pain. 1. Low back pain 2/2 labor/contractions vs. possible UTI/pyelo -FHT: 140/mod/+accels/-decels -Patient reports Brule-Rojas Cx ~15-20 minutes. SVE: 5/50/-2 (unchanged from exam on 04/22/18). Will recheck in 2 hours. -Ordered a straight cath UA. Results pending. -Plan: Will continue to monitor on NST for Cx & recheck in 2 hours. If UA is positive consider getting a CBC due to concern for possible pyelonephritis. 2. sIUP -no concerns at this time 3. Iron deficiency anemia -s/p iron transfusion on 04/20 -continue home iron - H/H on 04/22 11.5/34.6 - patient currently asx: denies MORENO & SOB 4. Hx of gestational hypertension vs preE (during 1st ) -Will monitor blood pressures closely 5. Hx of 1st trimester bleeding & use of plan B in early -Resolved, denies vaginal bleeding. -Anatomy scan showed no abnormalities. Discussion: Date/Time: 04/25/181116 This H&P was discussed with Dr. Pena and Dr. Regalado who agree with the above documentation and plan. Attending Addendum - Attending Addendum Date/Time: 04/25/182049 I personally evaluated the patient and discussed the management with Dr. Gonzales and Dr. Pena I agree with the History, Examination, Assessment and Plan documented above with any addition or exceptions noted below. 22 yo female at 37.0 wks by LMP/16.3 wk sono presents for evaluation of persistent back pain x1 day. Recent history of labor without delivery. s/p BMZ for FLM. Now with persistent lower back pain. Initial exam unchanged. Pos psoa sign bilaterally. Neg straight leg raises. Point tenderness to paraspinal muscles. Labs and imaging ordered to rule out infections. FHT reactive. No contractions. Will monitor and repeat exam in 2 hours. Give Tylenol and hydroxyzine. Ileana
[2018-04-25 11:58] LABS: Bilirubin Negative (Negative); Blood, Urine Negative (Negative); Clarity CLEAR (Clear); Glucose, Urine (Dipstick) Negative (Negative); Leukocyte Negative (Negative); Nitrite Negative (Negative); Protein, Urine (Dipstick) Negative (Neg-Trace); Specific Gravity, Urine 1.019 (1.002-1.036); Urobilinogen 0.2 mg/dL (0.2-1.0); pH, Urine 6.5 (5.0-9.0)
--- NOTE | 2018-04-25 13:57 | PDOC.LDPN ---
Labor & Delivery Progress Note - Subjective Subjective: other (Patient still having pain. Cannot get comfortable. Denies feeling any contractions. ) - Objective Vital signs reviewed and normal: yes General: other (In moderate distress 2/2 back pain.) Uterine fundus: non tender Dilation: 5 Effacement: 75% Station: -2 FHT: category 1, variability present [place] contractions every: No contractions visualized on TOCO - Assessment (1) Intrauterine Code(s): Z34.90 - ENCNTR FOR SUPRVSN OF NORMAL , UNSP, UNSP TRIMESTER Current Visit: Yes Status: Acute (2) Anemia affecting Code(s): O99.019 - ANEMIA COMPLICATING , UNSPECIFIED TRIMESTER Current Visit: Yes Status: Acute QualifierTitle: Trimester: third trimester Qualified Code(s): O99.013 - Anemia complicating , third trimester Comment: Continue iron supplementation and stool softner. (3) Low back pain Code(s): M54.5 - LOW BACK PAIN Current Visit: Yes Status: Acute QualifierTitle: Chronicity: acute Back pain laterality: bilateral -: 1. Low back pain 2/2 MSK vs. labor/contractions vs. possible UTI/pyelo -FHT: 140/mod/+accels/-decels -SVE @ 13:30: 5/50/-2 (unchanged from exam ~2 hours prior). No contractions seen on TOCO. Will d/c toco at this time as FHT is reassuring and no cx seen. Will also d/c cervical checks as patient is not in labor. -Straight cath UA negative. -Plan: Pain is most likely MSK in origin. However, will order a CBC & abdominal U/S to r/o any acute intra-abdominal process such as appendicitis or pyelonephritis. Will also give 50mg Atarax and 1 gram of tylenol. 2. sIUP -no concerns at this time 3. Iron deficiency anemia -s/p iron transfusion on 04/20 -continue home iron - H/H on 04/22 11.5/34.6 - patient currently asx: denies MORENO & SOB 4. Hx of gestational hypertension vs preE (during 1st ) - No concern at this time as BPs have been WNL since presentation. - Will monitor blood pressures closely 5. Hx of 1st trimester bleeding & use of plan B in early -Resolved, denies vaginal bleeding. -Anatomy scan showed no abnormalities. <Iraida Gonzales - Last Filed: 04/25/18 13:51> - Assessment (1) Intrauterine Code(s): Z34.90 - ENCNTR FOR SUPRVSN OF NORMAL , UNSP, UNSP TRIMESTER Current Visit: Yes Status: Acute (2) Anemia affecting Code(s): O99.019 - ANEMIA COMPLICATING , UNSPECIFIED TRIMESTER Current Visit: Yes Status: Acute Qualifiers: Trimester: third trimester Qualified Code(s): O99.013 - Anemia complicating , third trimester Comment: Continue iron supplementation and stool softner. (3) Low back pain Code(s): M54.5 - LOW BACK PAIN Current Visit: Yes Status: Acute Qualifiers: Chronicity: acute Back pain laterality: bilateral <Pam Regalado - Last Filed: 04/25/18 20:55> Attending Addendum - Attending Addendum Date/Time: 04/25/182053 I personally evaluated the patient and discussed the management with Dr. Gonzales and Dr. Pena I agree with the History, Examination, Assessment and Plan documented above with any addition or exceptions noted below. Exam unchanged. No evidence of labor. FHT reactive. Will continue to monitor pain control after medication. Still awaiting labs and imaging. Ileana <Pam Regalado - Last Filed: 04/25/18 20:55>
[2018-04-25 14:25] LABS: #Eosinphils 0.2 thou/uL (0.0-0.7); #Lymphocytes 1.7 thou/uL (1.20-3.40); #Neutrophils 10.4 thou/uL (1.40-6.50); %Basophils 0.1 % (0.0-1.0); %Eosinophils 1.6 % (0.0-10.0); %Lymphocytes 12.9 % (21.0-51.0); %Monocytes 7.3 % (0.0-10.0); %Neutrophils 78.1 % (42.0-75.0); Hemoglobin 10.2 g/dL (12.0-16.0); Mean Corpuscular HGB CONC 33.1 g/dL (32.0-36.0); Mean Corpuscular Volume 75.7 fL (78.0-98.0); Mean Platelet Volume 8.8 fL (7.4-10.4); Platelet Count 223 thou/uL (130-400); Red Blood Cell (RBC) Count 4.08 mill/uL (4.20-5.40); White Blood Cell (WBC) Count 13.3 thou/uL (4.8-10.8)
--- NOTE | 2018-04-25 15:30 | PDOC.LDPN ---
Labor & Delivery Progress Note - Objective Vital signs reviewed and normal: yes General: NAD, resting SVE: No cervical check done at this time as labor was ruled out w/ no cx on toco Bricelyn contractions every: N/A - Assessment (1) Intrauterine Code(s): Z34.90 - ENCNTR FOR SUPRVSN OF NORMAL , UNSP, UNSP TRIMESTER Current Visit: Yes Status: Acute (2) Anemia affecting Code(s): O99.019 - ANEMIA COMPLICATING , UNSPECIFIED TRIMESTER Current Visit: Yes Status: Acute QualifierTitle: Trimester: third trimester Qualified Code(s): O99.013 - Anemia complicating , third trimester Comment: Continue iron supplementation and stool softner. (3) Low back pain Code(s): M54.5 - LOW BACK PAIN Current Visit: Yes Status: Acute QualifierTitle: Chronicity: acute Back pain laterality: bilateral -: 1. Low back pain 2/2 MSK vs. labor/contractions vs. possible UTI/pyelo -FHT: 140/mod/+accels/-decels -SVE @ 13:30: 5/50/-2 (unchanged from exam ~2 hours prior). No contractions seen on TOCO. Ruled out labor. -Straight cath UA negative. CBC WNL except for stable anemia. Abd U/S significant for R hydronephrosis only 2/2 . -Plan: Pain is most likely MSK in origin as it was relieved with tylenol & Atarax. Will send home with labor precautions and atarax and instruct to take tylenol ZENIA for pain and to f/u with [facility] on 04/27/18. 2. sIUP -no concerns at this time 3. Iron deficiency anemia -s/p iron transfusion on 04/20 -continue home iron - H/H on 04/22 11.5/34.6 - patient currently asx: denies MORENO & SOB 4. Hx of gestational hypertension vs preE (during 1st ) - No concern at this time as BPs have been WNL since presentation. - Will monitor blood pressures closely 5. Hx of 1st trimester bleeding & use of plan B in early -Resolved, denies vaginal bleeding. -Anatomy scan showed no abnormalities. <Iraida Gonzales - Last Filed: 04/25/18 15:39> - Assessment (1) Intrauterine Code(s): Z34.90 - ENCNTR FOR SUPRVSN OF NORMAL , UNSP, UNSP TRIMESTER Current Visit: Yes Status: Acute (2) Anemia affecting Code(s): O99.019 - ANEMIA COMPLICATING , UNSPECIFIED TRIMESTER Current Visit: Yes Status: Acute Qualifiers: Trimester: third trimester Qualified Code(s): O99.013 - Anemia complicating , third trimester Comment: Continue iron supplementation and stool softner. (3) Low back pain Code(s): M54.5 - LOW BACK PAIN Current Visit: Yes Status: Acute Qualifiers: Chronicity: acute Back pain laterality: bilateral <Pam Regalado - Last Filed: 04/25/18 21:04> Attending Addendum - Attending Addendum Date/Time: 04/25/18 974 I personally evaluated the patient and discussed the management with Dr. Gonzales and Dr. Miranda I agree with the History, Examination, Assessment and Plan documented above with any addition or exceptions noted below. Pain related to MSK. Improved with medications. Precautions provided. Ok to d/c to home. ABrayMD <Pam Regalado - Last Filed: 04/25/18 21:04>
--- NOTE | 2018-04-25 16:36 | ULT ---
RENAL SONOGRAM: HISTORY: Right flank pain. FINDINGS: The right kidney is 11.5 cm in length with moderate hydronephrosis. The urinary bladder dome is comp ressed by the gravid uterus. The left kidney is 10.4 cm and has a normal appearance. IMPRESSION: Moderate right hydronephrosis, likely related to third trimester . No other significant abn ormalities demonstrated. POS: [facility]
--- NOTE | 2018-04-26 14:59 | ULT ---
RENAL SONOGRAM: US BLADDER: HISTORY: Right flank pain. FINDINGS: The right kidney is 11.5 cm in length with moderate hydronephrosis. The urinary bladder dome is comp ressed by the gravid uterus. The left kidney is 10.4 cm and has a normal appearance. IMPRESSION: Moderate right hydronephrosis, likely related to third trimester . No other significant abn ormalities demonstrated.
== END | disposition home or self-care (01) ==
LOC: L&D/OP 09:13
PROVIDERS: ATTEND Student in an Organized Health Care Education/Training Program
DX: O99.89 Other specified diseases and conditions complicating pregnancy, childbirth and the puerperium (principal); M54.5 Low back pain; O99.013 Anemia complicating pregnancy, third trimester; D50.9 Iron deficiency anemia, unspecified; Z3A.37 37 weeks gestation of pregnancy
CPT/HCPCS: 51701; 59025; 76770; 76856; 81003; 85025; 99283

== ENCOUNTER 2018-05-02 22:02 | Inpatient (IN) | payer OTHER ==
[2018-05-02 22:38] VITALS: BMI 27.1
--- NOTE | 2018-05-02 23:20 | PDOC.LDHP ---
Labor and Delivery H&P Chief complaint: other (increased pressure) HPI: Patient is a 22 yo F at 38 wks by LMP/16.3wk sono presenting today for increased CTX frequency. She has a hx significant for anemia requiring iron infusion during this . She has hx of Gestational HTN vs Pre-E with last . Patient was seen in clinic earlier today by Dr. Regalado for decreased movement. A BPP was performed and found to be normal. She was checked at 5/75/-3. On exam today, patient was re-checked and measured at 6/75/-2. Patient endorsed increased frequency of CTX about every 5 min as well as increased pressure. She has felt baby move since leaving clinic earlier today. She denies loss of fluids or leakage. She denies headache, increased swelling, vision changes, or abdominal pain. Current gestational age (weeks): 38 Dating criteria: last menstrual period, second trimester ultrasound Grav: 4 Para: 3 Current complications: none Abnormal US findings: No Social history: none - Physical Exam Vital signs reviewed and normal: yes General: NAD, resting, breathing through contractions Heart: RRR Lungs: nonlabored breathing Abdomen: NTTP Extremeties: trace edema FHT: category 1 - Vaginal Exam cm dilated: 6 Effacement: 75% Station: -2 - OB Labs Blood type: B RH: positive Antibody Screen: negative HIV: negative RPR: negative HEPSAg: negative 1 hour GCT: negative GBS: negative Urine drug screen: not done Rubella: immune - Plan Plan: admit to L&D -: This is a 22yo F at 38 wks by LMP/16.3wk sono presenting today for increased frequency of CTX. Hx of anemia requiring iron infusion with current and previous gestation HTN vs Pre-E in previous . GBS (-). Last check 6/75/-2. 1. Term Labor R/O - Admit to L&D as pt is a multip and lives 30 min away - patient encouraged to ambulate - Will recheck in 4 hours 2. Anemia of - Hemogram ordered <Emmanuelle Moore - Last Filed: 05/02/18 23:36> <Eliz Low - Last Filed: 05/03/18 07:36> Allergies/Adverse Reactions: Allergies Allergy/AdvReac Type Severity Reaction Status Date / Time No Known Allergies Allergy Verified 05/02/18 22:38 Attending Addendum - Attending Addendum Date/Time: 05/03/18 4719 I personally evaluated the patient and discussed the management with Dr. Moore I agree with the History, Examination, Assessment and Plan documented above with any addition or exceptions noted below. 22 yo F at 38 wks by LMP/16.3wk sono presenting for contractions increasing in pain and frequency. Pt was allowed to walk several hours and made some change to 6.5. Given her advanced dilation and multiparity she was admitted for augmentation of labor with pitocin. FHTs: 125/moderate variability/accels present/no decels. Cat I, scott irregularly 1. Labor -Start pitocin per protocol -GBS negative -Cephalic by sutures -Anticipate vaginal delivery 2. Anemia of -s/p iron infusion this -Hgb 10 on admission 3. H/o gHTN vs pre-E in 1st -BP normotensive <Eliz Low - Last Filed: 05/03/18 07:36>
[2018-05-03] MEDS ORDERED: Butorphanol Tartrate 1 MG/ML VIAL SLOW IVP PRN (00:36)
[2018-05-03] MEDS ORDERED: Acetaminophen 500 MG TAB PO PRN (00:36)
[2018-05-03] MEDS ORDERED: Lidocaine 1% (PF) 30 ML VIAL SC PRN ×2 (00:36→05:24)
[2018-05-03] MEDS ORDERED: Promethazine HCl 25 MG/ML VIAL IM PRN ×2 (00:36→08:18)
[2018-05-03] MEDS ORDERED: Ondansetron PF 4 MG/2 ML Vial IVP PRN ×2 (00:36→08:18)
[2018-05-03 02:21] LABS: Mean Corpuscular HGB CONC 33.8 g/dL (32.0-36.0); Mean Corpuscular Hemoglobin 25.4 pg (27.0-31.0); Mean Corpuscular Volume 75.3 fL (78.0-98.0); Mean Platelet Volume 9.2 fL (7.4-10.4); Platelet Count 214 thou/uL (130-400); Red Blood Cell (RBC) Count 3.94 mill/uL (4.20-5.40); White Blood Cell (WBC) Count 13.1 thou/uL (4.8-10.8)
[2018-05-03] MEDS ORDERED: NS / Oxytocin 40 units/1000ml 1,000 ML IV PRN (05:24)
[2018-05-03] MEDS ORDERED: NS w/ Oxytocin 10 units 500 ML IV SCH (05:30)
--- NOTE | 2018-05-03 05:31 | PDOC.LDPN ---
Labor & Delivery Progress Note - Subjective Subjective: comfortable, vaginal pressure, no concerns - Objective Vital signs reviewed and normal: yes General: NAD, resting, breathing through contractions Uterine fundus: non tender Dilation: 6.5 Effacement: 75% Station: -2 FHT: category 1, variability present [place] contractions every: 5-10min - Assessment (1) Term Code(s): Z34.80 - ENCOUNTER FOR SUPRVSN OF NORMAL , UNSP TRIMESTER Current Visit: No Status: Acute Comment: Doing well. Minimal pain. D/c home today. Follow up in 2 weeks at [facility]. Desires Nexplanon. Encouraged to continue breast feeding as much as possible; increase stimulation for increase milk production. (2) Anemia affecting Code(s): O99.019 - ANEMIA COMPLICATING , UNSPECIFIED TRIMESTER Current Visit: No Status: Acute QualifierTitle: Trimester: third trimester Qualified Code(s): O99.013 - Anemia complicating , third trimester Comment: Continue iron supplementation and stool softner. Plan: continue plan of care, pitocin for augmentation -: This is a 22 yo F at 38.1 weeks by LMP/16.3wk sono here for increased CTX. Hx of anemia in requiring iron infusion on 04/20/18 and gestational HTN vs pre-E in previous . GBS (-). NO concerns at this time. 1. Term - Most recent Check at 0515: 6.5/75/-2 @ 0515; will recheck in 2 hrs - Pt CTX every 5-10 min; nonpainful - Will start pitocin - Pt desires epidural 2. Anemia in - F/u results of Hemogram - monitor VS <Emmanuelle Moore - Last Filed: 05/03/18 05:32> Attending Addendum - Attending Addendum Date/Time: 05/03/18 0739 I personally evaluated the patient and discussed the management with Dr. Moore I agree with the History, Examination, Assessment and Plan documented above with any addition or exceptions noted below. Pt evaluated at 0700. Cervix is 7/90/-2, Cat I tracing. Roel irregularly , every 3-8min with pitocin at 12. Continue to titrate pitocin per protocol. Will get epidural now. Anticipate vaginal delivery. <Eliz Low - Last Filed: 05/03/18 07:47>
[2018-05-03 05:52] LABS: HBSAg Index 0.21 S/CO (0-0.99); Hep B Surf Ag Non-Reactive S/CO (NonReactive)
[2018-05-03 05:53] LABS: HIV (1/2) Antibody/Antigen Non-Reactive (NonReactive); HIV 1/2 INDEX 0.15 S/CO (<1.00)
[2018-05-03 06:13] LABS: Syphilis Antibody Nonreactive (Nonreactive); Syphilis Antibody Index 0.03 S/CO (<1.00 Non-Reactive)
[2018-05-03] MEDS ORDERED: Bupivacaine 0.5% 20 ML, fentaNYL Citrate/PF 400 MCG in Sodium Chloride 0.9% 72 ML EPIDURAL SCH (07:00)
[2018-05-03] MEDS ORDERED: DISCONTINUE ALL PREVIOUS NARCOTICS FS SCH (07:00)
[2018-05-03] MEDS: Lactated Ringer's 1,000 ML IV SCH ×3 (07:22→23:15)
[2018-05-03] MEDS ORDERED: diphenhydrAMINE 50 MG/ML VIAL IVP PRN (08:18)
[2018-05-03] MEDS ORDERED: Lactated Ringer's 500 ML IV PRN (08:18)
[2018-05-03] MEDS ORDERED: ePHEDrine/0.9% NaCl/PF SYRINGE 50 mg/10 ml SLOW IVP PRN (08:18)
[2018-05-03] MEDS ORDERED: Naloxone HCl 0.4 mg/ml Vial IVP PRN ×2 (08:18)
[2018-05-03] MEDS ORDERED: Eucerin (Mineral Oil/Petrolatum,White) 30 gm Jar TOP PRN (08:18)
[2018-05-03] MEDS ORDERED: Acetaminophen 325 MG TAB PO PRN (08:18)
[2018-05-03] MEDS ORDERED: Communication Order-Pharmacy FS SCH (08:30)
[2018-05-03] MEDS ORDERED: fentaNYL Citrate/PF 400 MCG, Bupivacaine 0.5% 20 ML in Sodium Chloride 0.9% 72 ML EPIDURAL SCH (08:30)
--- NOTE | 2018-05-03 09:21 | PDOC.LDPN ---
Labor & Delivery Progress Note - Subjective Subjective: comfortable, no concerns - Objective Vital signs reviewed and normal: yes General: NAD Dilation: 7 Effacement: 75% (70%) Station: -1 FHT: category 1, variability present (+ Accels) [place] contractions every: 3-4 minutes Procedures: Epidural placed around 0700 & kam placed @ 0900 Resuscitative measures: maternal IV fluids, maternal position change - Assessment (1) Anemia affecting Code(s): O99.019 - ANEMIA COMPLICATING , UNSPECIFIED TRIMESTER Current Visit: No Status: Acute Qualifiers: Trimester: third trimester Qualified Code(s): O99.013 - Anemia complicating , third trimester (2) Intrauterine Code(s): Z34.90 - ENCNTR FOR SUPRVSN OF NORMAL , UNSP, UNSP TRIMESTER Current Visit: No Status: Acute (3) Term Code(s): Z34.80 - ENCOUNTER FOR SUPRVSN OF NORMAL , UNSP TRIMESTER Current Visit: No Status: Acute Plan: other -: This is a 22 yo F at 38.1 weeks by LMP/16.3wk sono who presented with increased contractions. 1. Term - Most recent Check at 0900: /-1; Will consider AROM as patient made little change from last check around 0500. - Pt CTX every 3-4 min. FHTs reassuring with baseline in 130s, +accels, & moderate variability. - Will continue pitocin. - Epidural started around 0700. - Kam placed at 0900. - GBS negative. 2. Anemia in - s/p iron infusion on 04/20/18 - H/H --> /29.6 on admission - Will likely get a repeat hemagram tomorrow AM after delivery. - Will continue to monitor VS. 3. h/o gestational HTN vs. Pre-e in previous : - Will continue to monitor VS. - BPs have been WNL since admission. - No concerns at this time.
--- NOTE | 2018-05-03 10:01 | PDOC.LDPN ---
Labor & Delivery Progress Note - Subjective Subjective: comfortable, no concerns - Objective Vital signs reviewed and normal: yes General: NAD, resting, breathing through contractions Uterine fundus: non tender SVE: 8/90/-1 FHT: category 1 (baseline: 125, accels present, no decels) Peculiar contractions every: 2-3 minutes AROM: clear fluid - Assessment (1) Term Code(s): Z34.80 - ENCOUNTER FOR SUPRVSN OF NORMAL , UNSP TRIMESTER Current Visit: No Status: Acute Comment: Doing well. Minimal pain. D/c home today. Follow up in 2 weeks at [facility]. Desires Nexplanon. Encouraged to continue breast feeding as much as possible; increase stimulation for increase milk production. (2) Anemia affecting Code(s): O99.019 - ANEMIA COMPLICATING , UNSPECIFIED TRIMESTER Current Visit: No Status: Chronic QualifierTitle: Trimester: third trimester Qualified Code(s): O99.013 - Anemia complicating , third trimester Comment: Continue iron supplementation and stool softner. -: This is a 22 yo F at 38.1 weeks by LMP/16.3wk sono in active labor. 1. Term -AROM- clear fluid - Epidural started around 0700. - Lam placed at 0900. - GBS negative. - Will continue pitocin. 2. Anemia in - s/p iron infusion on 04/20/18 - H/H --> /29.6 on admission 3. h/o gestational HTN vs. Pre-e in previous : - Will continue to monitor VS. - BPs have been WNL since admission. - No concerns at this time. <Rolanda Pena - Last Filed: 05/03/18 09:59> Attending Addendum - Attending Addendum Date/Time: 05/03/18 1023 I personally evaluated the patient and discussed the management with Dr. Pena I agree with the History, Examination, Assessment and Plan documented above with any addition or exceptions noted below. at 38 weeks who presented in active labor. Augmented with pitocin and AROM with clear fluid. GBS negative. <An Acosta - Last Filed: 05/03/18 10:24>
--- NOTE | 2018-05-03 12:21 | PDOC.OPDEL ---
Addendum entered and electronically signed by Iraida Gonzales MD 05/03/18 17:11 : Time of delivery should be noted to be 11:47. Original Note: OB Operative/Delivery Note Delivery Dr/Surgeon: Dr. Iraida Gonzales Assist: Dr. Rolanda Pena & Dr. Pam Regalado Pre-Delivery Diagnosis: active labor Procedure/Post Delivery Dx: spontaneous vaginal delivery Weeks gestation: 38 (38.1) Anesthesia: epidural - Additional Findings/Plan Placenta delivered: spontaneous Repaired Obstetrical Laceration: none Estimated blood loss: QBL 50mL Compilations/Other Findings: Delivering Physician: Dr. Iraida Gonzales Attending: Dr. Pam Regalado Procedure: Spontaneous Vaginal Delivery Anesthesia: epidural QBL: 50 ml Pre-op Diagnosis: 1. Term intrauterine in labor 2. Hx of anemia in 3. h/o gestational HTN vs. pre-e in previous Post-op Diagnosis: 1. Term intrauterine , delivered 2. same as above 3. same as above Indications: A 22y/o female presents in active labor with increasing contractions. Delivery Note: This is 22yo F @ 38.1 wks who delivered a viable female infant at 10:47. Following an uneventful antepartum course, a vigorous female was delivered over an intact perineum in the occipitoanterior position. Anterior Shoulder and then remainder of the body delivered. Nuchal cord x1 that was reduced upon delivery. The head was held down and mouth and nares were bulb suctioned. Cord clamped after delayed cord clamping for 1 minute and cut and cord blood collected. Placenta delivered intact in the Zimmerman presentation with a 3 vessel cord noted. Fundal massage was performed and the fundus was firm. The cervix and vagina were inspected and found to be free of lacerations. went to nursery in good condition for routine care. Apgars were 9 /9 at 1 & 5 minutes, respectively. Patient tolerated delivery well and went to after routine recovery/care. Post delivery plan: routine recovery <Iraida Gonzales - Last Filed: 05/03/18 12:25> - Additional Findings/Plan Compilations/Other Findings: I was present and participated in the above described delivery. Uncomplicated . Female infant delivered with loose nuchal in OA position. Terminal mec. No lacerations. Routine care. ABrayMD <Pam Regalado - Last Filed: 05/07/18 18:47>
[2018-05-03] MEDS ORDERED: Adacel (T-DAP) 0.5 ML VIAL IM ONE (14:13)
[2018-05-03] MEDS ORDERED: Milk Of Magnesia 30 ML UDCUP PO PRN (14:13)
[2018-05-03] MEDS ORDERED: Bisacodyl 10 MG SUPP PR PRN (14:13)
[2018-05-03] MEDS ORDERED: NS / Oxytocin 40 units/1000ml 1,000 ML IV SCH (14:13)
[2018-05-03] MEDS: Ibuprofen 800 MG TAB PO SCH ×2 (14:28→21:52)
[2018-05-03] MEDS: Ferrous Sulfate 325 MG TAB PO SCH (15:00)
[2018-05-03] MEDS: Sulfameth/Trimethoprim DS 800-160mg TAB PO SCH ×2 (15:00→21:52)
[2018-05-03] MEDS: Docusate Calcium (SURFAK) 240 MG CAP PO SCH (21:52)
--- NOTE | 2018-05-04 05:41 | PDOC.PP ---
Post Progress Note Post Day #: 1 Subjective: Patient states that she feels well. Pain has been well controlled with ZENIA ibuprofen. Still has occasional cramping in lower abdomen but is otherwise not having much pain. Says bleeding is still like a regular period with some small dime-sized blood clots noted. She is eating and drinking ok without any N/V. Baby is feeding well. Is bottle feeding for now as mom has been afraid to pump or breast feed due to her abscess. Is passing gas but has not yet had a BM. Is voiding normally. PO intake tolerated: yes Flatus: yes Ambulation: yes Vital Signs (12 hours) Temp Pulse Resp BP 05/04/18 04:38 98.2 F 85 16 106/61 05/04/18 00:15 98.2 F 85 18 111/55 L 05/03/18 19:55 99.0 F 88 18 102/57 L Weight Weight 65.317 kg - Physical Examination General: NAD Cardiovascular: no m/r/g, RRR Respiratory: clear to auscultation bilaterally, non-labored breathing Abdominal: + bowel sounds, lochia, no distention, appropriately TTP Extremities: negative homans (B) Deviation from normal: small, 1x1 cm abscess just below L nipple. No erythema or discharge noted. Neurological: no gross focal deficits Psychiatric: A&Ox3, normal affect Result Diagrams: 05/03/18 02:10 Additional Labs: Post Labs Blood Type B POSITIVE 05/03/18 02:10 Hep Bs Antigen Non-Reactive S/CO (NonReactive) 05/03/18 02:11 (1) Anemia affecting Code(s): O99.019 - ANEMIA COMPLICATING , UNSPECIFIED TRIMESTER Status : Chronic Qualifiers: Trimester: third trimester Qualified Code(s): O99.013 - Anemia complicating , third trimester - Assessment/Plan This is a 22 yo F who is day #1 s/p of a TAGA female at 38.1 weeks. 1. day #1: - Will continue routine care. - Has ibuprofen ZENIA for pain control. - Will continue regular diet as tolerated. - No BM yet. Will continue docusate PRN for constipation. - Voiding normally. 2. Anemia in - s/p iron infusion on 04/20/18 - H/H --> 07/25.6 on admission - QBL only 50mL. - Will continue PO ferrous sulfate and continue to monitor VS. 3. h/o gestational HTN vs. Pre-e in previous : - BPs have been WNL since admission. - Will continue to monitor VS and UO. 4. Left breast abscess: - Started on PO bactrim yesterday. - Will instruct to use warm compresses today. - Will likely do an I&D today as patient desires to breast feed. Dispo: Will likely go home tomorrow after baby's 36 hour bilirubin has resulted. <Iraida Gonzales - Last Filed: 05/04/18 06:44> Weight Weight 65.317 kg Result Diagrams: 05/03/18 02:10 Additional Labs: Post Labs Blood Type B POSITIVE 05/03/18 02:10 Hep Bs Antigen Non-Reactive S/CO (NonReactive) 05/03/18 02:11 Rubella IgG Antibody Less than 0.90 index (Immune >0.99) L 05/03/18 02:11 <Pam Regalado - Last Filed: 05/08/18 14:19> Attending Addendum - Attending Addendum Date/Time: 05/04/18 1417 I personally evaluated the patient and discussed the management with Dr. Gonzales I agree with the History, Examination, Assessment and Plan documented above with any addition or exceptions noted below. 22 yo female s/p uncomplicated . Doing well. Lochia appropriate. Small breast abscess to areola. Started on PO antibx. I&D later today. May pump from affected breast. Fundus firm and nontender. ABrayMD <Pam Regalado - Last Filed: 05/08/18 14:19>
[2018-05-04] MEDS: Ibuprofen 800 MG TAB PO SCH ×3 (06:14→23:24)
[2018-05-04] MEDS: Prenatal Vitamin 1 TAB PO SCH (08:43)
[2018-05-04] MEDS: Sulfameth/Trimethoprim DS 800-160mg TAB PO SCH ×2 (08:43→21:39)
[2018-05-04] MEDS: Docusate Calcium (SURFAK) 240 MG CAP PO SCH ×2 (08:43→21:39)
[2018-05-04] MEDS ORDERED: Lidocaine 1% (PF) 30 ML VIAL SC PRN (09:10)
[2018-05-04] MEDS: Lactated Ringer's 1,000 ML IV SCH (09:38)
[2018-05-04] MEDS: Ferrous Sulfate 325 MG TAB PO SCH ×2 (10:41→18:08)
--- NOTE | 2018-05-04 11:18 | PDOC.EVN ---
Event Note - Event Note Event Note: PRE-OP DIAGNOSIS: Aereolar Abscess POST-OP DIAGNOSIS: Aereolar Abscess vs. sebaceous cyst PROCEDURE: incision and drainage of abscess Performing Physician: Dr. Iraida Gonzales Supervising Physician: Dr. Rolanda Pena PROCEDURE: A timeout protocol was performed prior to initiating the procedure. The area was prepared and draped in the usual, sterile manner. The site was anesthetized with 1% lidocaine with epinephrine. A linear incision along the local skin lines was made and a small amount of bloody, purulent material expressed. A second linear incision was made just superior to the first and a small cystic mass with a surrounding capsule was expressed. The area was explored thoroughly and no further discharge was expressed. Bleeding was minimal. Packing was not required. Followup: The patient tolerated the procedure well without complications. Standard post-procedure care was explained and breast feeding and breast pumping precautions were given.
[2018-05-05] MEDS: Ibuprofen 800 MG TAB PO SCH (05:48)
--- NOTE | 2018-05-05 07:00 | PDOC.PP ---
Post Progress Note Post Day #: 2 Subjective: Patient states she if feeling well today and is ready to go home. Is still having some occasional lower abdominal cramping but overall pain has been well controlled. Denies any N/V and is tolerating food and drinks PO. Has had a BM and is passing gas. Voiding normally. Still having bleeding equivalent to menstrual blood loss but is not seeing clots anymore. Still has some tenderness in left breast abscess with minimal purulent serosanguinous discharge that patient can express. Is still avoiding pumping on the left but did start breast feeding in her right breast yesterday and did well. Will continue to breast and bottle feed ad padmini at home. Denies any headache, vision changes, SOB, or chest pain. PO intake tolerated: yes Flatus: yes Ambulation: yes Vital Signs (12 hours) Temp Pulse Resp BP 05/04/18 21:35 98.2 F 79 16 99/64 Weight Weight 65.317 kg - Physical Examination General: NAD Cardiovascular: no m/r/g, RRR Respiratory: clear to auscultation bilaterally, non-labored breathing Abdominal: + bowel sounds, lochia, no distention, appropriately TTP Extremities: negative homans (B) Deviation from normal: ~1cm abscess s/p I&D on L breast w/ minimal purulent serosanguinous d/c Neurological: no gross focal deficits Psychiatric: A&Ox3, normal affect Result Diagrams: 05/03/18 02:10 Additional Labs: Post Labs Blood Type B POSITIVE 05/03/18 02:10 Hep Bs Antigen Non-Reactive S/CO (NonReactive) 05/03/18 02:11 Rubella IgG Antibody Less than 0.90 index (Immune >0.99) L 05/03/18 02:11 (1) Anemia affecting Code(s): O99.019 - ANEMIA COMPLICATING , UNSPECIFIED TRIMESTER Status : Chronic Qualifiers: Trimester: third trimester Qualified Code(s): O99.013 - Anemia complicating , third trimester - Assessment/Plan This is a 22 yo F who is day #2 s/p of a TAGA female infant at 38.1 weeks. 1. day #2: - Will continue routine care. - Has ibuprofen ZENIA for pain control. - Will continue regular diet as tolerated. - Has had a BM. Will continue docusate PRN for constipation. - Voiding normally. - Desires nexplanon for BC. - No concerns at this time. 2. Anemia in - s/p iron infusion on 04/20/18 - H/H --> 07/25.6 on admission - QBL only 50mL. - Will continue PO ferrous sulfate and continue to monitor VS. 3. h/o gestational HTN vs. Pre-e in previous : - BPs have been WNL since admission. - Will continue to monitor VS and UO. 4. Left breast abscess: - s/p I&D yesterday. Preliminary Cx + for gram + cocci in pairs and clusters. Likely was an infected sebaceous cyst (see op note). - Will continue PO bactrim BID. - Instructed patient to breast feed in right breast only until left breast heals. Can still pump or self-express milk on the left to sustain milk supply per senior research consultant. Dispo: Will likely go home today with follow-up appointment in 2 weeks for routine visit. <Iraida Gonzales - Last Filed: 05/05/18 09:18> Weight Weight 65.317 kg Result Diagrams: 05/03/18 02:10 Additional Labs: Post Labs Blood Type B POSITIVE 05/03/18 02:10 Hep Bs Antigen Non-Reactive S/CO (NonReactive) 05/03/18 02:11 Rubella IgG Antibody Less than 0.90 index (Immune >0.99) L 05/03/18 02:11 <Pam Regalado - Last Filed: 05/08/18 14:55> Attending Addendum - Attending Addendum Date/Time: 05/05/18 [id number] I personally evaluated the patient and discussed the management with Dr. Gonzales I agree with the History, Examination, Assessment and Plan documented above with any addition or exceptions noted below. Doing well. Ok to d/c to home. Follow up with [facility] in 2 wks. LARC for contraception. Ileana <Pam Regalado - Last Filed: 05/08/18 14:55>
[2018-05-05 08:08] VITALS: BP 99/50; TEMP 98.4
[2018-05-05] MEDS: Docusate Calcium (SURFAK) 240 MG CAP PO SCH (09:09)
[2018-05-05] MEDS: Prenatal Vitamin 1 TAB PO SCH (09:09)
[2018-05-05] MEDS: Ferrous Sulfate 325 MG TAB PO SCH (09:10)
[2018-05-05] MEDS: Sulfameth/Trimethoprim DS 800-160mg TAB PO SCH (09:10)
[2018-05-05] MEDS ORDERED: Measles/Mumps/Rubella 10 MCG/0.5 ML VIAL SC ONE (13:15)
== END 2018-05-05 14:00 | disposition home or self-care (01) | DRG 774 ==
LOC: L&D/OP 22:02 → L&D 05-03 05:30 → 3SW 05-03 14:05
PROVIDERS: ADMIT Student in an Organized Health Care Education/Training Program; ATTEND Student in an Organized Health Care Education/Training Program
PROC: 10E0XZZ Delivery of Products of Conception, External Approach (ICD-10-PCS; principal; 2018-05-03)
PROC: 10907ZC Drainage of Amniotic Fluid, Therapeutic from Products of Conception, Via Natural or Artificial Opening (ICD-10-PCS; 2018-05-03)
PROC: 0H9UXZZ (ICD-10-PCS; 2018-05-04)
DX: O99.02 Anemia complicating childbirth (principal); O91.113 Abscess of breast associated with pregnancy, third trimester; D64.9 Anemia, unspecified; Z3A.38 38 weeks gestation of pregnancy; Z37.0 Single live birth; O69.81X0 Labor and delivery complicated by cord around neck, without compression, not applicable or unspecified; N61.1 Abscess of the breast and nipple
CPT/HCPCS: 36415; 51702; 85027; 86762; 86780; 86850; 86900; 86901; 87070; 87076; 87205; 87340; 87389; 90707; 99285; J2001; J3010; J3490; J7050

== ENCOUNTER 2019-03-07 19:52 | Emergency (ER) | payer OTHER, SELFPAY ==
[2019-03-07] MEDS ORDERED: Ondansetron PF 4 MG/2 ML Vial ONE (20:27)
[2019-03-07] MEDS ORDERED: Morphine 4 MG/ML VIAL ONE (20:27)
[2019-03-07 20:36] LABS: #Eosinphils 0.2 thou/uL (0.0-0.7); #Lymphocytes 2.2 thou/uL (1.20-3.40); #Monocytes 0.9 thou/uL (0.11-0.59); #Neutrophils 12.2 thou/uL (1.40-6.50); %Basophils 0.2 % (0.0-1.0); %Eosinophils 1.5 % (0.0-10.0); %Lymphocytes 14.4 % (21.0-51.0); %Monocytes 5.5 % (0.0-10.0); %Neutrophils 78.4 % (42.0-75.0); Hemoglobin 14.6 g/dL (12.0-16.0); Mean Corpuscular HGB CONC 33.6 g/dL (32.0-36.0); Mean Corpuscular Hemoglobin 29.6 pg (27.0-31.0); Mean Corpuscular Volume 87.9 fL (78.0-98.0); Mean Platelet Volume 7.9 fL (7.4-10.4); Platelet Count 299 thou/uL (130-400); RBC Distribution Width 10.9 % (11.5-14.5); Red Blood Cell (RBC) Count 4.95 mill/uL (4.20-5.40); White Blood Cell (WBC) Count 15.6 thou/uL (4.8-10.8)
[2019-03-07 20:46] LABS: BHCG - Serum Negative (NEGATIVE); Pregs Control Background? CLEAR/WHITE (CLR/WHITE); Pregs Control Bar Appear? YES (CONTROL BAR)
[2019-03-07 20:49] LABS: Bilirubin Negative (Negative); Blood, Urine Moderate (Negative); Clarity CLOUDY (Clear); Glucose, Urine (Dipstick) Negative (Negative); Leukocyte Moderate (Negative); Nitrite Negative (Negative); Protein, Urine (Dipstick) 100 mg/dL (Neg-Trace); Specific Gravity, Urine 1.019 (1.002-1.036); Urobilinogen 0.2 mg/dL (0.2-1.0); pH, Urine 7.5 (5.0-9.0)
[2019-03-07 20:55] LABS: Bacteria/HPF Rare-Few HPF (None Seen); Hyaline Casts/LPF 0-3 HYALINE CAST LPF (0-3 Hyaline); Pathc Cast-AUWi Flag 0.54 (0-2.49); Squamous Epithelial 0-3 HPF (0-3)
[2019-03-07 20:57] LABS: Yeast-AUWi Flag 57.1 (0-25.0)
[2019-03-07 20:59] LABS: ALT (SGPT) 28 U/L (8-55); AST (SGOT) 27 U/L (5-34); Albumin 5.1 g/dL (3.5-5.0); Alkaline Phosphatase 82 U/L (40-150); Anion Gap 15 mmol/L (10-20); BUN (Urea Nitrogen) 15 mg/dL (7.0-18.7); Bilirubin, Total 0.4 mg/dL (0.2-1.2); Calc. Creatinine Clearance 0 mL/min (70-130); Calcium 10.1 mg/dL (7.8-10.44); Carbon Dioxide 24 mmol/L (22-29); Chloride 103 mmol/L (98-107); Estimated GFR-MDRD Greater than 90; Globulin 3.2 g/dL (2.4-3.5); Glucose 106 mg/dL (70-105); Lipase 59 U/L (8-78); Potassium 3.8 mmol/L (3.5-5.1); Protein, Total 8.3 g/dL (6.0-8.3); Sodium 138 mmol/L (136-145)
[2019-03-07 21:07] LABS: Yeast-All Forms None Seen HPF (None Seen)
--- NOTE | 2019-03-07 21:34 | CT ---
CT Abdomen Pelvis W Con: 03/07/2019 12:00 AM CLINICAL INFORMATION: Right lower quadrant abdominal pain COMPARISON: 09/30/2012 TECHNIQUE: Multiple contiguous axial images were obtained and a CT of the abdomen and pelvis with IV contrast. C oronal reformats were performed. FINDINGS: Lower Chest: within normal limits. Abdomen: Liver: within normal limits. Bile Ducts: Normal caliber. Gallbladder: No calcified gallstones. Normal caliber wall. Pancreas: within normal limits. Spleen: within normal limits. Adrenals: within normal limits. Kidneys: within normal limits. Pelvis: Reproductive Organs: No pelvic masses. Ureters: Nonspecific enlargement of the proximal right ureter without delay in the right nephrogram. No calcification seen in either ureter. Bladder: within normal limits. Peritoneum: No ascites or free air, no fluid collection. Bowel: Normal caliber. Normal appendix. Mesentery and Retroperitoneum: No enlarged mesenteric or retroperitoneal lymph nodes. Vessels: Normal. Abdominal Wall: within normal limits. Bones: Within normal limits IMPRESSION: No evidence of acute intraabdominal\pelvic abnormality.
[2019-03-07] MEDS ORDERED: Ketorolac Tromethamine 30 MG/ML VIAL ONE (21:37)
--- NOTE | 2019-03-07 22:25 | ULT ---
EXAM: Pelvic ultrasound HISTORY: Right lower quadrant abdominal pain for 2 days COMPARISON: CT abdomen/pelvis 03/07/2019 TECHNIQUE: Multiple grayscale and color Doppler images were obtained in a transabdominal and transvag inal pelvic ultrasound. Spectral analysis of the Doppler waveforms of the ovaries were performed. FINDINGS: CERVIX: No evidence of nabothian cysts. UTERUS: Normal in size without focal abnormality. ENDOMETRIAL STRIPE: 6 mm. No free fluid is seen in the pelvis. RIGHT OVARY: Normal flow without focal mass. LEFT OVARY: Normal flow without focal mass. IMPRESSION: No significant pelvic abnormality
[2019-03-09 02:56] LABS: Chlamydia by PCR Not Detected (NotDetected); GC by PCR Not Detected (NotDetected)
== END 2019-03-07 22:46 | disposition home or self-care (01) ==
LOC: ERS 19:52
DX: R10.31 Right lower quadrant pain (principal)
CPT/HCPCS: 36415; 74177; 76856; 80053; 81003; 81015; 83690; 84703; 85025; 87086; 87480; 87491; 87510; 87591; 87660; 96374; 96375; J1885; J2270; J2405

== ENCOUNTER 2019-12-23 09:20 | Emergency (ER) | payer OTHER, SELFPAY | END 2019-12-23 10:26 | disposition home or self-care (01) | LOC: ERS 09:20 | DX: J06.9 Acute upper respiratory infection, unspecified (principal) | CPT/HCPCS: 87081; 87430; 87804; 99283 ==

== ENCOUNTER 2020-12-21 22:21 | Emergency (ER) | payer SELFPAY ==
[2020-12-21] MEDS ORDERED: Ketorolac Tromethamine 30 MG/ML VIAL ONE (22:49)
== END 2020-12-21 23:34 | disposition home or self-care (01) ==
LOC: ERS 22:21
DX: S93.401A Sprain of unspecified ligament of right ankle, initial encounter (principal); I10 Essential (primary) hypertension; X50.1XXA Overexertion from prolonged static or awkward postures, initial encounter
CPT/HCPCS: 96372; J1885

== ENCOUNTER 2021-09-04 12:20 | Emergency (ER) | payer SELFPAY ==
[2021-09-04 13:37] LABS: #Eosinphils 0.1 thou/uL (0.0-0.7); #Lymphocytes 1.9 thou/uL (1.20-3.40); #Monocytes 0.6 thou/uL (0.11-0.59); #Neutrophils 6.9 thou/uL (1.40-6.50); %Basophils 0.3 % (0.0-1.0); %Eosinophils 1.3 % (0.0-10.0); %Lymphocytes 19.5 % (21.0-51.0); %Monocytes 5.8 % (0.0-10.0); %Neutrophils 73.1 % (42.0-75.0); Hemoglobin 14.3 g/dL (12.0-16.0); Mean Corpuscular HGB CONC 34.2 g/dL (32.0-36.0); Mean Corpuscular Hemoglobin 30.6 pg (27.0-31.0); Mean Corpuscular Volume 89.4 fL (78.0-98.0); Platelet Count 218 thou/uL (130-400); RBC Distribution Width 11.2 % (11.5-14.5); Red Blood Cell (RBC) Count 4.67 mill/uL (4.20-5.40); White Blood Cell (WBC) Count 9.5 thou/uL (4.8-10.8)
[2021-09-04] MEDS ORDERED: Acetaminophen 500 MG TAB ONE (13:48)
[2021-09-04] MEDS ORDERED: Metoclopramide HCl 10 MG/2 ML VIAL ONE (13:49)
[2021-09-04] MEDS ORDERED: diphenhydrAMINE 50 MG/ML VIAL ONE (13:49)
[2021-09-04 13:52] LABS: BHCG - Serum Negative (NEGATIVE)
[2021-09-04 13:53] LABS: Pregs Control Background? CLEAR/WHITE (CLR/WHITE); Pregs Control Bar Appear? YES (CONTROL BAR)
[2021-09-04 13:59] LABS: ALT (SGPT) 14 U/L (8-55); AST (SGOT) 18 U/L (5-34); Albumin 4.7 g/dL (3.5-5.0); Alkaline Phosphatase 67 U/L (40-110); Anion Gap 14 mmol/L (10-20); BUN (Urea Nitrogen) 9 mg/dL (7.0-18.7); Calc. Creatinine Clearance 0 mL/min (70-130); Calcium 9.7 mg/dL (7.8-10.44); Carbon Dioxide 23 mmol/L (22-29); Chloride 106 mmol/L (98-107); Globulin 3.2 g/dL (2.4-3.5); Glucose 91 mg/dL (70-105); Protein, Total 7.9 g/dL (6.0-8.3); Sodium 139 mmol/L (136-145)
[2021-09-04 14:43] LABS: Bacteria/HPF 1+ HPF (None Seen); Bilirubin Negative (Negative); Blood, Urine Negative (Negative); Clarity Clear (Clear); Glucose, Urine (Dipstick) Normal (Negative); Ketone, Urine 100 mg/dL (Negative); Leukocyte 500 Leu/uL (Negative); Nitrite Negative (Negative); Protein, Urine (Dipstick) Negative (Neg-Trace); RBC/HPF 0-3 HPF (0-3); Specific Gravity, Urine 1.017 (1.002-1.036); Urobilinogen Normal mg/dL (Less than 2)
== END 2021-09-04 13:40 | disposition home or self-care (01) ==
LOC: ERS 12:20
DX: R55 Syncope and collapse (principal); S09.90XA Unspecified injury of head, initial encounter; I10 Essential (primary) hypertension
CPT/HCPCS: 70450; 80053; 81003; 81015; 84484; 84703; 85025; 93005; 96365; 96366; 96375; J1200; J2765